=== PATIENT | female | born 1995 | race Caucasian/White ===

== ENCOUNTER 2016-07-13 19:38 | Emergency (ER) | payer OTHER ==
--- NOTE | 2016-07-13 20:08 | ED ORDER SUMMARY ---
..... 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 (21:02 07/13/2016)] [Electronically signed by Pilar Selby A.R.N.P. (21:52 07/13/2016)] [Electronically locked/signed by Rima Umana R.N. (21:02 07/13/2016)]
--- NOTE | 2016-07-13 20:08 | ED NURSING NOTES ---
Clinical Report - Nurses [facility] [address] [place] [address] 07/13/2016 19:39 Patient: LAYLA GARCIA TRIAGE Triage time 19:46. Acuity: LEVEL 3. Chief Complaint: ALLERGIC REACTION and ITCHING and SWELLING . Nasal, eyes, and throat. Alert. No acute distress. --19:53 Rima Umana R.N. 19:46 07/13/16. BP: 135/57. HR: 100. RR: 22. O2 saturation: 99% on room air. Temp: 98.1 F. Pain level now: 04/14. --19:53 Rima Umana R.N. 19:46 07/13/16. BP: 135/57. HR: 100. RR: 22. O2 saturation: 99% on room air. Temp: 98.1 F. Pain level now: 04/14. --19:53 Rima Umana R.N. Weight: 95.2 kg stated. Height/Length: 68 inches Per Patient. BMI: 31.9. --19:50 Rima Umana R.N. Medications None. --19:49 Rima Umana R.N. Allergies No Known Drug Allergy. --19:49 Rima Umana R.N. History Arrived by private vehicle. Historian: patient. Accompanied by family. Primary physician ([facility]). This is a new problem and onset was abrupt. Symptoms are constant and still present. She has had itching and swelling. Location identified as the face, periorbital area and lips. 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 PAST MEDICAL HX: Immunizations: up-to-date. Last normal menstrual period now. SOCIAL HX: Never smoker. No alcohol use or drug use. ABUSE ASSESSMENT: No report of abuse. FALL RISK ASSESSMENT: Fall risk assessment completed. No fall risk identified. NUTRITIONAL RISK ASSESSMENT: The nutritional risk assessment revealed no deficiencies. FUNCTIONAL ASSESSMENT: Functional assessment: no impairments noted. LEARNING NEEDS ASSESSMENT: The learning needs assessment revealed no barriers. SKIN INTEGRITY ASSESSMENT: Skin integrity risk assessment completed. No skin integrity risk identified. --19:53 Rima Umana R.N. PROBLEMS: no known problems. ADDITIONAL SURGERIES: no known surgeries. Interventions ID band on patient. To room. --19:53 Rima Umana R.N. PHYSICAL ASSESSMENT Ambulatory to room. Patient gowned. GENERAL / NEURO / PSYCH: Alert. Appears anxious. Oriented X 4. HEENT: Mucous membranes are pink. RESPIRATORY: Respirations not labored. ( Speaks full sentences, but states feels voice getting thick.). CVS: Normal sinus rhythm noted. Cardiac rhythm: normal sinus rhythm. Capillary refill less than 2 seconds. SKIN: Skin is intact, warm and dry. Swelling on the periorbital area and lips. --20:11 Rima Umana R.N. NURSING PROGRESS NOTES 19:50 07/13/2016 Site #1 started via IV in the right antecubital space with an 20g angiocath, with aseptic technique and good blood return; one attempt. Blood drawn: rainbow set. Labeled in the presence of the patient and sent to the lab. Saline lock flushed with 10 mL saline. --19:55 An Mcgraw 20:04 07/13/2016 Epinephrine (EPINEPHrine HCl) Subcutaneous 0.3 mg given. Given in the right upper arm. Allergies verified and confirmed 5 rights. (Dose/route verified with LUCY Abarca). --20:04 An Mcgraw blood and plasma laboratory assistant, pulse oximeter and NIBP monitor placed on patient; electrical journeyman- Lead II; monitor alarms on. Patient gowned. Head of bed elevated. Reassurance given. Two patient identifiers checked. Call light placed in reach. Side rails up x 2. Bed placed in lowest position. Brakes of bed on. Patient ready for evaluation. --20:12 Rima Umana R.N. 20:00 07/13/2016 Pepcid IVP 40 mg given over 4 minute(s) via site #1. Allergies verified and confirmed 5 rights. IV patency established. IV site checked: no pain, redness, or swelling. IV flushed thoroughly pre- and post-medication administration. IVP given by RN. --20:14 Rima Umana R.N. 20:03 07/13/2016 Benadryl (DiphenhydrAMINE HCl) IVP 25 mg given over 1 minute(s) via site #1. Allergies verified, confirmed 5 rights and sedative warning given to the patient. IV patency established. IV site checked: no pain, redness, or swelling. IV flushed thoroughly pre- and post-medication administration. IVP given by RN. --20:13 Rima Umana R.N. 20:04 07/13/2016 Decadron IVP 8 mg given over 1 minute(s) via site #1. Allergies verified and confirmed 5 rights. IV patency established. IV site checked: no pain, redness, or swelling. IV flushed thoroughly pre- and post-medication administration. IVP given by RN. --20:14 Rima Umana R.N. 20:45 07/13/2016 Site #1 removed upon discharge. Catheter intact. Bandaid applied. --20:57 Rima Umana R.N. DISPOSITION / DISCHARGE 20:45. Condition at departure: improved. No learning barriers present. Discharge instructions provided and reviewed. Reviewed medication(s) side effects, precautions, dosing and course information. Prescription(s) given to the patient. Patient verbalized understanding. Written instructions provided in Icelandic. The patient was discharged home and accompanied by spouse. She left the Emergency Department ambulatory and via private vehicle. Spouse driving. Medication list reviewed and validated. --21:00 Rima Umana R.N. 20:58 07/13/16. BP: 136/77. HR: 77. RR: 18. O2 saturation: 100%. Temp: deferred. Pain level now: 02/14. 19:46 07/13/16. BP: 135/57. HR: 100. RR: 22. O2 saturation: 99% on room air. Temp: 98.1 F. Pain level now: 04/14. --21:00 Rima Umana R.N. Locked/Released at 07/13/2016 21:02 by Rima Umana R.N.
--- NOTE | 2016-07-13 20:08 | ED ORDER SUMMARY ---
..... 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 (21:02 07/13/2016)] [Electronically signed by Pilar Selby A.R.N.P. (21:52 07/13/2016)] [Electronically locked/signed by Rima Umana R.N. (21:02 07/13/2016)]
--- NOTE | 2016-07-13 20:08 | ED CLINICAL REPORT ---
Clinical Report - Physicians/Mid Levels [facility] [address] [place] [address] 07/13/2016 19:39 Patient: LAYLA GARCIA Time Seen: 1941; upon arrival, initial patient contact, initial documentation, patient care assumed. Arrived- By private vehicle. Historian- patient. HISTORY OF PRESENT ILLNESS Chief Complaint: ALLERGIC REACTION and ITCHING. FACIAL SWELLING and THROAT SWELLING. The patient has had itching and swelling involving the face, lips, tongue and throat but not had trouble swallowing. No difficulty breathing, dizziness or fainting episodes. This started just prior to arrival and is still present. It was abrupt in onset and has been constant. No cause has been identified. The patient was not assessed by EMS prior to arrival. The patient self administered medication prior to arrival including Benadryl (50mg). Similar symptoms previously: None. Recent medical care: Not recently seen/assessed. REVIEW OF SYSTEMS No sore throat, cough or fever. All systems otherwise negative, except as recorded above. PAST HISTORY Negative. SOCIAL HISTORY Never smoker. No alcohol use or drug use. No recent travel. Is a local resident. FAMILY HISTORY Negative. ADDITIONAL NOTES The nursing notes have been reviewed with agreement regarding the chief complaint, HPI, ROS, PMH and patient medications and allergies. PHYSICAL EXAM Vital Signs: 07/13/2016 19:46 BP: 135/57. HR: 100. RR: 22. O2 saturation: 99%. Temp: 98.1 F. Pain level now: 3/10. Have been reviewed as normal and appear to be correct. Appearance: Alert. Oriented X3. No acute distress. Head and Neck: External inspection not normal. Head: Mild facial angioedema involving the left periorbital area and cheek. Eyes: Pupils equal, round and reactive to light. ENT: Ears normal. Nose normal. Pharynx normal. Voice normal. Neck: Neck supple. CVS: Normal heart rate and rhythm. Heart sounds normal. Respiratory: No respiratory distress. Breath sounds normal. Skin: Skin warm and dry. Normal skin turgor. Extremities: Normal external inspection. Extremities nontender. Skin: Normal skin color. No rash. No urticaria. Neuro: Oriented X 3. No motor deficit. No sensory deficit. PROGRESS AND PROCEDURES Course of Care: 20:30 07/13/16. Pt feeling better, less swelling, nad, resp even and unlabored. Patient counseled in person regarding the patient's stable condition and diagnosis. 2030. Differential Diagnosis: Other possible considerations: anaphylaxis, angioedema, allergic reactions, urticaria, hives. Above considerations are based on history, physical exam and reassessment. Differential diagnosis was discussed with patient. Disposition: Discharged home in good and improved condition (20:31). Condition: good and stable. CLINICAL IMPRESSION Generalized allergic reaction with angioedema of unknown cause. INSTRUCTIONS Warnings: GENERAL WARNINGS: Return or contact your physician immediately if your condition worsens or changes unexpectedly, if not improving as expected, or if other problems arise. Specifically return if problem worsens. Prescription Medications: Tamia 180 mg tablets: take 1 orally daily for 10 days. Dispense ten (10). No refills. EpiPen: inject outside of thigh for allergic reaction. Dispense one (1) unit. No refills. Substitution is permissible. Prednisone 20 mg: take 3 orally every day for 10 days. Dispense sufficient quantity. No refills. Pepcid 40 mg RPD: take 1 orally at bedtime for 10 days. Dispense ten (10). No refills. Follow-up: Follow up with your doctor in about two days even if well. Call for an appointment. Summary of care provided to patient. Understanding of the discharge instructions verbalized by patient. (Electronically signed by Pilar Selby A.R.N.P. 07/13/2016 21:52)
--- NOTE | 2016-07-13 20:08 | ED NURSING NOTES ---
Clinical Report - Nurses [facility] [address] [place] [address] 07/13/2016 19:39 Patient: LAYLA GARCIA TRIAGE Triage time 19:46. Acuity: LEVEL 3. Chief Complaint: ALLERGIC REACTION and ITCHING and SWELLING . Nasal, eyes, and throat. Alert. No acute distress. --19:53 Rima Umana R.N. 19:46 07/13/16. BP: 135/57. HR: 100. RR: 22. O2 saturation: 99% on room air. Temp: 98.1 F. Pain level now: 04/14. --19:53 Rima Umana R.N. 19:46 07/13/16. BP: 135/57. HR: 100. RR: 22. O2 saturation: 99% on room air. Temp: 98.1 F. Pain level now: 04/14. --19:53 Rima Umana R.N. Weight: 95.2 kg stated. Height/Length: 68 inches Per Patient. BMI: 31.9. --19:50 Rima Umana R.N. Medications None. --19:49 Rima Umana R.N. Allergies No Known Drug Allergy. --19:49 Rima Umana R.N. History Arrived by private vehicle. Historian: patient. Accompanied by family. Primary physician ([facility]). This is a new problem and onset was abrupt. Symptoms are constant and still present. She has had itching and swelling. Location identified as the face, periorbital area and lips. 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 PAST MEDICAL HX: Immunizations: up-to-date. Last normal menstrual period now. SOCIAL HX: Never smoker. No alcohol use or drug use. ABUSE ASSESSMENT: No report of abuse. FALL RISK ASSESSMENT: Fall risk assessment completed. No fall risk identified. NUTRITIONAL RISK ASSESSMENT: The nutritional risk assessment revealed no deficiencies. FUNCTIONAL ASSESSMENT: Functional assessment: no impairments noted. LEARNING NEEDS ASSESSMENT: The learning needs assessment revealed no barriers. SKIN INTEGRITY ASSESSMENT: Skin integrity risk assessment completed. No skin integrity risk identified. --19:53 Rima Umana R.N. PROBLEMS: no known problems. ADDITIONAL SURGERIES: no known surgeries. Interventions ID band on patient. To room. --19:53 Rima Umana R.N. PHYSICAL ASSESSMENT Ambulatory to room. Patient gowned. GENERAL / NEURO / PSYCH: Alert. Appears anxious. Oriented X 4. HEENT: Mucous membranes are pink. RESPIRATORY: Respirations not labored. ( Speaks full sentences, but states feels voice getting thick.). CVS: Normal sinus rhythm noted. Cardiac rhythm: normal sinus rhythm. Capillary refill less than 2 seconds. SKIN: Skin is intact, warm and dry. Swelling on the periorbital area and lips. --20:11 Rima Umana R.N. NURSING PROGRESS NOTES 19:50 07/13/2016 Site #1 started via IV in the right antecubital space with an 20g angiocath, with aseptic technique and good blood return; one attempt. Blood drawn: rainbow set. Labeled in the presence of the patient and sent to the lab. Saline lock flushed with 10 mL saline. --19:55 An Mcgraw 20:04 07/13/2016 Epinephrine (EPINEPHrine HCl) Subcutaneous 0.3 mg given. Given in the right upper arm. Allergies verified and confirmed 5 rights. (Dose/route verified with LUCY Abarca). --20:04 An Mcgraw library monitor, pulse oximeter and NIBP monitor placed on patient; shelter monitor- Lead II; monitor alarms on. Patient gowned. Head of bed elevated. Reassurance given. Two patient identifiers checked. Call light placed in reach. Side rails up x 2. Bed placed in lowest position. Brakes of bed on. Patient ready for evaluation. --20:12 Rima Umana R.N. 20:00 07/13/2016 Pepcid IVP 40 mg given over 4 minute(s) via site #1. Allergies verified and confirmed 5 rights. IV patency established. IV site checked: no pain, redness, or swelling. IV flushed thoroughly pre- and post-medication administration. IVP given by RN. --20:14 Rima Umana R.N. 20:03 07/13/2016 Benadryl (DiphenhydrAMINE HCl) IVP 25 mg given over 1 minute(s) via site #1. Allergies verified, confirmed 5 rights and sedative warning given to the patient. IV patency established. IV site checked: no pain, redness, or swelling. IV flushed thoroughly pre- and post-medication administration. IVP given by RN. --20:13 Rima Umana R.N. 20:04 07/13/2016 Decadron IVP 8 mg given over 1 minute(s) via site #1. Allergies verified and confirmed 5 rights. IV patency established. IV site checked: no pain, redness, or swelling. IV flushed thoroughly pre- and post-medication administration. IVP given by RN. --20:14 Rima Umana R.N. 20:45 07/13/2016 Site #1 removed upon discharge. Catheter intact. Bandaid applied. --20:57 Rima Umana R.N. DISPOSITION / DISCHARGE 20:45. Condition at departure: improved. No learning barriers present. Discharge instructions provided and reviewed. Reviewed medication(s) side effects, precautions, dosing and course information. Prescription(s) given to the patient. Patient verbalized understanding. Written instructions provided in Kazakh. The patient was discharged home and accompanied by spouse. She left the Emergency Department ambulatory and via private vehicle. Spouse driving. Medication list reviewed and validated. --21:00 Rima Umana R.N. 20:58 07/13/16. BP: 136/77. HR: 77. RR: 18. O2 saturation: 100%. Temp: deferred. Pain level now: 02/14. 19:46 07/13/16. BP: 135/57. HR: 100. RR: 22. O2 saturation: 99% on room air. Temp: 98.1 F. Pain level now: 04/14. --21:00 Rima Umana R.N. Locked/Released at 07/13/2016 21:02 by Rima Umana R.N.
--- NOTE | 2016-07-13 21:52 | ED DISCHARGE INSTRUCTIONS ---
Patient: LAYLA GARCIA General Instructions [facility] VisitID: [id number] [place] [address] 21y, F Registration Date/Time: 07/13/2016 Generalized allergic reaction with angioedema of unknown cause. INSTRUCTIONS Warnings: GENERAL WARNINGS: Return or contact your physician immediately if your condition worsens or changes unexpectedly, if not improving as expected, or if other problems arise. Specifically return if problem worsens. Prescription Medications: Tamia 180 mg tablets: take 1 orally daily for 10 days. Dispense ten (10). No refills. EpiPen: inject outside of thigh for allergic reaction. Dispense one (1) unit. No refills. Substitution is permissible. Prednisone 20 mg: take 3 orally every day for 10 days. Dispense sufficient quantity. No refills. Pepcid 40 mg RPD: take 1 orally at bedtime for 10 days. Dispense ten (10). No refills. Follow-up: Follow up with your doctor in about two days even if well. Call for an appointment. Summary of care provided to patient. Understanding of the discharge instructions verbalized by patient. ADDITIONAL INFORMATION Allergic Reaction,Generalized [Other] You are having an allergic reaction. This may cause an itchy rash, dizziness, fainting, trouble breathing or swallowing, and swelling of the face or other parts of the body. This can be caused by exposure to something in your surroundings that you have become sensitive to. This could be due to medicine or food. This could also be due to something you put on your skin or in your hair or something in the air. Often it is not possible to find out exactly what has caused your reaction. The goal of today's treatment is to relieve symptoms. The rash will usually fade over several days, but can sometimes last up to two weeks. Home Care: 1) If you know what you are allergic to, avoid it because future reactions could be worse than this one. 2) Avoid tight clothing and anything that heats up your skin (hot showers/baths, direct sunlight) since heat will make itching worse. 3) An ice pack will relieve local areas of intense itching and redness. Lanacaine cream or Solarcaine spray (or other product containing "benzocaine", available without a prescription) will reduce the itching. 4) Oral Benadryl (diphenhydramine) is an antihistamine available at drug and grocery stores. Unless a prescription antihistamine was given, Benadryl may be used to reduce itching if large areas of the skin are involved. Use lower doses during the daytime and higher doses at bedtime since the drug may make you sleepy. [NOTE: Do not use Benadryl if you have glaucoma or if you are a man with trouble urinating due to an enlarged prostate.] Claritin (loratidine) is an antihistamine that causes less drowsiness and is a good alternative for daytime use. Follow Up Follow Up with your doctor or this facility in two days if your symptoms do not continue to improve. If you had a severe reaction today, or if you have had several mild-moderate allergic reactions in the past, ask your doctor about allergy testing to find out what you are allergic to. If your reaction included dizziness, fainting or trouble breathing or swallowing, ask your doctor about carrying an Allergy Kit (injectable epinephrine) for home use. Get Prompt Medical Attention if any of the following occur: -- Trouble breathing or swallowing -- New or worse swelling in the face, eyelids, lips, mouth, tongue or throat -- Dizziness, weakness or fainting Angioedema Angioedema (zrsxzxxdtgbnvzi-i-grdiq) is a sudden appearance of swollen patches (edema) on the skin or mucous membranes. The swelling is painless and does not itch. It most often involves the face, lips, mouth, tongue, back of throat or vocal cords. It may also occur in other places such as the arms or legs. A rash may also appear during the first 4 days of this illness. The most common cause for this condition is a side-effect to a class of medicine calledACE inhibitor.This type of drug is used to treat high blood pressure. It includes captopril (Capoten), enalapril (Vasotec) and lisinopril (Prinivil, Zestril). Tell your doctor if you are taking any of these medicines. Other causes of angioedema include allergic reaction to something eaten, touched or inhaled. Angioedema may also be hereditary. In some cases, no cause can be found. Angioedema can lead to the swelling of the air passage in the mouth or throat. Severe swelling can block your breathing and cause . Your doctor believes that you are not at risk for this; however, be alert for early signs of increased swelling in the mouth or throat, or difficulty with swallowing or breathing. Angioedema may recur. It is therefore important to watch for the earliest signs of this condition (below). Return to the hospital promptly if swelling involves the face, mouth or throat areas. Home Care: Rest quietly today. No heavy exertion or excess physical activity. If you were told that your angioedema was from a medicine that you are taking, you must stop taking this medicine. Contact your doctor for a different one. In the future, advise medical staff that you are allergic to this medicine. If medicine was prescribed to treat angioedema (for example, steroids or antihistamines), take it as directed. Oral Benadryl (diphenhydramine) is an antihistamine available at drug and grocery stores. Unless another antihistamine was prescribed, Benadryl may be used to reduce swelling or itching. Use lower doses during the daytime and higher doses at bedtime since the drug may make you sleepy. [NOTE: Do not use Benadryl if you have glaucoma or if you are a man with trouble urinating due to an enlarged prostate.] Claritin (loratidine) is an antihistamine that causes less drowsiness and is a good alternative for daytime use. Follow Up with your doctor or as advised by our staff. Get Prompt Medical Attention if any of the following occur: Increase in swelling of lip, mouth, tongue or throat Trouble swallowing Trouble breathing Severe abdominal pains Anaphylaxis Anaphylaxis is the term for a severe allergic reaction. It may begin within minutes, up to a couple hours after exposure to the substance you are allergic to (allergen). Symptoms include nausea, vomiting, diarrhea or stomach cramps, itchy rash (hives), swelling of the eyes, lips, face or tongue, wheezing, difficulty breathing or swallowing, throat tightness, chest pain, dizziness or fainting. This kind of reaction can be life-threatening. Fortunately, your case has responded to treatment. Any remaining symptoms should resolve within 6-24 hours. If you are exposed to the same substance again, you may have the same or more severe reaction. Treatment for anaphylaxis is epinephrine (adrenalin). This is available by prescription as Epi-Pen for self-injection. If the cause of your reaction is known, you should avoid exposure in the future. If the cause is not known, follow up with your doctor for special testing to determine what you are allergic to. Home Care: Rest at home for the next 24 hours. Avoid tobacco and alcohol consumption. These may worsen your symptoms. If you know what caused your reaction today, avoid that in the future since the next reaction may be worse. Let your family members, friends and personal physician know about your allergic reaction. If your allergy was to food, learn how to read food labels so you can check for the offending substance. If a product does not have a label, it is best to avoid it. Consider carrying an identification card or getting a Medic-Alert bracelet to inform medical personnel of your condition in the event you are not able to do so yourself. If an Epi-Pen was prescribed, carry it at all times. It can be life-saving. Learn how to use the device. If you begin to feel the symptoms of another reaction in the future, use the Epi-Pen to inject yourself, and then call 911. Dont wait until symptoms become severe. Oral Benadryl (diphenhydramine) is an antihistamine available at drug and grocery stores. Unless a prescription antihistamine was given, Benadryl may be used to reduce itching if large areas of the skin are involved. Use lower doses during the daytime and higher doses at bedtime since the drug may make you sleepy. [NOTE: Do not use Benadryl if you have glaucoma or if you are a man with trouble urinating due to an enlarged prostate.] Claritin (loratidine) is an antihistamine that causes less drowsiness and is a good alternative for daytime use. If you were prescribed any medicines to prevent symptoms from returning, be sure to take them exactly as directed. Follow Up with your doctor or as advised if you are not improving over the next 1-2 days. If you do not know what caused this reaction, skin and blood tests, or an elimination diet may be helpful. You may locate an [facility] in your area by contacting: [employer] www.aaaai.org [phone] [employer] www.acaai.org Get Prompt Medical Attention if any of the following occur: Worsening of your symptoms Trouble breathing or swallowing Swelling in the mouth or face Chest pain Dizziness, weakness or fainting Fexofenadine Hydrochloride Oral tablet What is this medicine? FEXOFENADINE (fex oh VIVIEN a federico) is an antihistamine. This medicine is used to treat or prevent symptoms of allergies. It is also used to help reduce itchy skin rash and hives. How should I use this medicine? Take this medicine by mouth with a full glass of water. Follow the directions on the prescription label. You may take this medicine with food or on an empty stomach. Take your medicine at regular intervals. Do not take it more often than directed. You may need to take this medicine for several days before your symptoms improve. Talk to your ham stripper regarding the use of this medicine in children. While this drug may be prescribed for children as young as 6 years old for selected conditions, precautions do apply. What side effects may I notice from receiving this medicine? Side effects that you should report to your doctor or health career resource technician as soon as possible: allergic reactions like skin rash, itching or hives, swelling of the face, lips, or tongue breathing problems chest pain fast heartbeat infection or fever Side effects that usually do not require medical attention (report to your doctor or health career resource technician if they continue or are bothersome): cough drowsiness dry or irritated nose, mouth, or throat headache menstrual changes pain stomach upset, nausea What may interact with this medicine? antacids erythromycin grapefruit, apple, or orange juice ketoconazole magnesium-containing products What if I miss a dose? If you miss a dose, take it as soon as you can. If it is almost time for your next dose, take only that dose. Do not take double or extra doses. Where should I keep my medicine? Keep out of the reach of children. Store at room temperature between 20 and 25 degrees C (68 and 77degrees F). Protect from moisture. Throw away any unused medicine after the expiration date. What should I tell my health care provider before I take this medicine? They need to know if you have any of these conditions: kidney disease an unusual or allergic reaction to fexofenadine, terfenadine, other medicines, foods, dyes, or preservatives or trying to get breast-feeding What should I watch for while using this medicine? Visit your doctor or health career resource technician for regular checks on your health. Tell your doctor or healthcare professional if your symptoms do not start to get better or if they get worse. Prednisone Oral tablet What is this medicine? PREDNISONE (PRED ni sone) is a corticosteroid. It is commonly used to treat inflammation of the skin, joints, lungs, and other organs. Common conditions treated include asthma, allergies, and arthritis. It is also used for other conditions, such as blood disorders and diseases of the adrenal glands. How should I use this medicine? Take this medicine by mouth with a glass of water. Follow the directions on the prescription label. Take this medicine with food. If you are taking this medicine once a day, take it in the morning. Do not take more medicine than you are told to take. Do not suddenly stop taking your medicine because you may develop a severe reaction. Your doctor will tell you how much medicine to take. If your doctor wants you to stop the medicine, the dose may be slowly lowered over time to avoid any side effects. Talk to your ham stripper regarding the use of this medicine in children. Special care may be needed. What side effects may I notice from receiving this medicine? Side effects that you should report to your doctor or health career resource technician as soon as possible: allergic reactions like skin rash, itching or hives, swelling of the face, lips, or tongue changes in emotions or moods changes in vision depressed mood eye pain fever or chills, cough, sore throat, pain or difficulty passing urine increased thirst swelling of ankles, feet Side effects that usually do not require medical attention (report to your doctor or health career resource technician if they continue or are bothersome): confusion, excitement, restlessness headache nausea, vomiting skin problems, acne, thin and shiny skin trouble sleeping weight gain What may interact with this medicine? Do not take this medicine with any of the following medications: metyrapone mifepristone This medicine may also interact with the following medications: aminoglutethimide amphotericin B aspirin and aspirin-like medicines barbiturates certain medicines for diabetes, like glipizide or glyburide cholestyramine cholinesterase inhibitors cyclosporine digoxin diuretics ephedrine female hormones, like estrogens and control pills isoniazid ketoconazole NSAIDS, medicines for pain and inflammation, like ibuprofen or naproxen phenytoin rifampin toxoids vaccines warfarin What if I miss a dose? If you miss a dose, take it as soon as you can. If it is almost time for your next dose, talk to your doctor or health career resource technician. You may need to miss a dose or take an extra dose. Do not take double or extra doses without advice. Where should I keep my medicine? Keep out of the reach of children. Store at room temperature between 15 and 30 degrees C (59 and 86 degrees F). Protect from light. Keep container tightly closed. Throw away any unused medicine after the expiration date. What should I tell my health care provider before I take this medicine? They need to know if you have any of these conditions: Brittani's syndrome diabetes glaucoma heart disease high blood pressure infection (especially a virus infection such as chickenpox, cold sores, or herpes) kidney disease liver disease mental illness myasthenia gravis osteoporosis seizures stomach or intestine problems thyroid disease an unusual or allergic reaction to lactose, prednisone, other medicines, foods, dyes, or preservatives or trying to get breast-feeding What should I watch for while using this medicine? Visit your doctor or health career resource technician for regular checks on your progress. If you are taking this medicine over a prolonged period, carry an identification card with your name and address, the type and dose of your medicine, and your doctor's name and address. This medicine may increase your risk of getting an infection. Tell your doctor or health career resource technician if you are around anyone with measles or chickenpox, or if you develop sores or blisters that do not heal properly. If you are going to have surgery, tell your doctor or health career resource technician that you have taken this medicine within the last twelve months. Ask your doctor or health career resource technician about your diet. You may need to lower the amount of salt you eat. This medicine may affect blood sugar levels. If you have diabetes, check with your doctor or health career resource technician before you change your diet or the dose of your diabetic medicine. Famotidine Oral tablet What is this medicine? FAMOTIDINE (fa JAMESON caballero) is a type of antihistamine that blocks the release of stomach acid. It is used to treat stomach or intestinal ulcers. It can also relieve heartburn from acid reflux. How should I use this medicine? Take this medicine by mouth with a glass of water. Follow the directions on the prescription label. If you only take this medicine once a day, take it at bedtime. Take your doses at regular intervals. Do not take your medicine more often than directed. Talk to your ham stripper regarding the use of this medicine in children. Special care may be needed. What side effects may I notice from receiving this medicine? Side effects that you should report to your doctor or health career resource technician as soon as possible: agitation, nervousness confusion hallucinations skin rash, itching Side effects that usually do not require medical attention (report to your doctor or health career resource technician if they continue or are bothersome): constipation diarrhea dizziness headache What may interact with this medicine? delavirdine itraconazole ketoconazole What if I miss a dose? If you miss a dose, take it as soon as you can. If it is almost time for your next dose, take only that dose. Do not take double or extra doses. Where should I keep my medicine? Keep out of the reach of children. Store at room temperature between 15 and 30 degrees C (59 and 86 degrees F). Do not freeze. Throw away any unused medicine after the expiration date. What should I tell my health care provider before I take this medicine? They need to know if you have any of these conditions: kidney or liver disease trouble swallowing an unusual or allergic reaction to famotidine, other medicines, foods, dyes, or preservatives or trying to get breast-feeding What should I watch for while using this medicine? Tell your doctor or health career resource technician if your condition does not start to get better or if it gets worse. Finish the full course of tablets prescribed, even if you feel better. Do not take with aspirin, ibuprofen or other antiinflammatory medicines. These can make your condition worse. Do not smoke cigarettes or drink alcohol. These cause irritation in your stomach and can increase the time it will take for ulcers to heal. If you get black, tarry stools or vomit up what looks like coffee grounds, call your doctor or health career resource technician at once. You may have a bleeding ulcer. You have been given the following additional information: Allergic Reaction, Other (General) Angioedema Anaphylaxis, General Fexofenadine Hydrochloride Oral tablet Prednisone Oral tablet Famotidine Oral tablet (Electronically signed by Pilar Selby A.R.N.P. 07/13/2016 21:52)
--- NOTE | 2016-07-13 21:52 | ED MED RECONCILIATION SUMMARY ---
Patient: LAYLA GARCIA Medication Reconciliation Report [facility] VisitID: [id number] [place] [address] 21y, F Registration Date/Time: 07/13/2016 Weight: 95.2 kg Height/Length: 68 in. BMI: 31.9 ALLERGIES: No Known Drug Allergy The patient's Home Medications are listed below: NONE. The source(s) of the original Home Medication information: Not obtained. The following Medications were given to the patient in the Emergency Department: Epinephrine [Subcutanreous] Subcutaneous 0.3 mg, administered: 07/13/2016 8:04:00 PM Benadryl [IVP] IVP 25 mg, administered: 07/13/2016 8:03:00 PM Decadron [IVP] IVP 8 mg, administered: 07/13/2016 8:04:00 PM Pepcid [IVP] IVP 40 mg, administered: 07/13/2016 8:00:00 PM The following Medications were prescribed to the patient: Tamia 180 mg tablets: take 1 orally daily for 10 days. Dispense ten (10). No refills. -- Pilar Selby A.R.N.P. EpiPen: inject outside of thigh for allergic reaction. Dispense one (1) unit. No refills. Substitution is permissible. -- Pilar Selby A.R.N.P. Prednisone 20 mg: take 3 orally every day for 10 days. Dispense sufficient quantity. No refills. -- Pialr Selby A.R.N.P. Pepcid 40 mg RPD: take 1 orally at bedtime for 10 days. Dispense ten (10). No refills. -- Pilar Selby A.R.N.P.
--- NOTE | 2016-07-13 21:52 | ED MED RECONCILIATION SUMMARY ---
Patient: LAYLA GARCIA Medication Reconciliation Report [facility] VisitID: [id number] [place] [address] 21y, F Registration Date/Time: 07/13/2016 Weight: 95.2 kg Height/Length: 68 in. BMI: 31.9 ALLERGIES: No Known Drug Allergy The patient's Home Medications are listed below: NONE. The source(s) of the original Home Medication information: Not obtained. The following Medications were given to the patient in the Emergency Department: Epinephrine [Subcutanreous] Subcutaneous 0.3 mg, administered: 07/13/2016 8:04:00 PM Benadryl [IVP] IVP 25 mg, administered: 07/13/2016 8:03:00 PM Decadron [IVP] IVP 8 mg, administered: 07/13/2016 8:04:00 PM Pepcid [IVP] IVP 40 mg, administered: 07/13/2016 8:00:00 PM The following Medications were prescribed to the patient: Tamia 180 mg tablets: take 1 orally daily for 10 days. Dispense ten (10). No refills. -- Pilar Selby A.R.N.P. EpiPen: inject outside of thigh for allergic reaction. Dispense one (1) unit. No refills. Substitution is permissible. -- Pilar Selby A.R.N.P. Prednisone 20 mg: take 3 orally every day for 10 days. Dispense sufficient quantity. No refills. -- Pilar Selby A.R.N.P. Pepcid 40 mg RPD: take 1 orally at bedtime for 10 days. Dispense ten (10). No refills. -- Pilar Selby A.R.N.P.
--- NOTE | 2016-07-13 21:52 | ED MAR SUMMARY ---
..... Medication Administration Record [facility] [address] [place] [address] Patient: LAYLA GARCIA Visit ID: [id number] 21y, F Weight: 95.2 kg Height/Length: 68 in BMI: 31.9 ALLERGIES: No Known Drug Allergy Given 20:07/13/2016 Rima Umana R.N. Medication Administered: PEPCID [IVP], Dose: 40 mg IVP over 4 minute(s), Site: #1 right AC. Medication Ordered: Pepcid IV 40 mg/50mL (NOW). Given 20:07/13/2016 Rima Umana R.N. Medication Administered: BENADRYL [IVP] (DIPHENHYDRAMINE HCL), Dose: 25 mg IVP over 1 minute(s), Site: #1 right AC. Medication Ordered: Benadryl IV 25 mg (NOW). Given 20:07/13/2016 Rima Umana R.N. Medication Administered: DECADRON [IVP], Dose: 8 mg IVP over 1 minute(s), Site: #1 right AC. Medication Ordered: Decadron IV 8 mg (NOW). Given 20:07/13/2016 An Mcgraw, Medication Administered: EPINEPHRINE [SUBCUTANREOUS] (EPINEPHRINE HCL), Dose: 0.3 mg Subcutaneous. Medication Ordered: Epinephrine Subcut 0.3 mg (HIGH ALERT MEDICATION, NOW).
--- NOTE | 2016-07-13 21:52 | ED DISCHARGE INSTRUCTIONS ---
Patient: LAYLA GARCIA General Instructions [facility] VisitID: [id number] [place] [address] 21y, F Registration Date/Time: 07/13/2016 Generalized allergic reaction with angioedema of unknown cause. INSTRUCTIONS Warnings: GENERAL WARNINGS: Return or contact your physician immediately if your condition worsens or changes unexpectedly, if not improving as expected, or if other problems arise. Specifically return if problem worsens. Prescription Medications: Tamia 180 mg tablets: take 1 orally daily for 10 days. Dispense ten (10). No refills. EpiPen: inject outside of thigh for allergic reaction. Dispense one (1) unit. No refills. Substitution is permissible. Prednisone 20 mg: take 3 orally every day for 10 days. Dispense sufficient quantity. No refills. Pepcid 40 mg RPD: take 1 orally at bedtime for 10 days. Dispense ten (10). No refills. Follow-up: Follow up with your doctor in about two days even if well. Call for an appointment. Summary of care provided to patient. Understanding of the discharge instructions verbalized by patient. ADDITIONAL INFORMATION Allergic Reaction,Generalized [Other] You are having an allergic reaction. This may cause an itchy rash, dizziness, fainting, trouble breathing or swallowing, and swelling of the face or other parts of the body. This can be caused by exposure to something in your surroundings that you have become sensitive to. This could be due to medicine or food. This could also be due to something you put on your skin or in your hair or something in the air. Often it is not possible to find out exactly what has caused your reaction. The goal of today's treatment is to relieve symptoms. The rash will usually fade over several days, but can sometimes last up to two weeks. Home Care: 1) If you know what you are allergic to, avoid it because future reactions could be worse than this one. 2) Avoid tight clothing and anything that heats up your skin (hot showers/baths, direct sunlight) since heat will make itching worse. 3) An ice pack will relieve local areas of intense itching and redness. Lanacaine cream or Solarcaine spray (or other product containing "benzocaine", available without a prescription) will reduce the itching. 4) Oral Benadryl (diphenhydramine) is an antihistamine available at drug and grocery stores. Unless a prescription antihistamine was given, Benadryl may be used to reduce itching if large areas of the skin are involved. Use lower doses during the daytime and higher doses at bedtime since the drug may make you sleepy. [NOTE: Do not use Benadryl if you have glaucoma or if you are a man with trouble urinating due to an enlarged prostate.] Claritin (loratidine) is an antihistamine that causes less drowsiness and is a good alternative for daytime use. Follow Up Follow Up with your doctor or this facility in two days if your symptoms do not continue to improve. If you had a severe reaction today, or if you have had several mild-moderate allergic reactions in the past, ask your doctor about allergy testing to find out what you are allergic to. If your reaction included dizziness, fainting or trouble breathing or swallowing, ask your doctor about carrying an Allergy Kit (injectable epinephrine) for home use. Get Prompt Medical Attention if any of the following occur: -- Trouble breathing or swallowing -- New or worse swelling in the face, eyelids, lips, mouth, tongue or throat -- Dizziness, weakness or fainting Angioedema Angioedema ([id number]) is a sudden appearance of swollen patches (edema) on the skin or mucous membranes. The swelling is painless and does not itch. It most often involves the face, lips, mouth, tongue, back of throat or vocal cords. It may also occur in other places such as the arms or legs. A rash may also appear during the first 4 days of this illness. The most common cause for this condition is a side-effect to a class of medicine calledACE inhibitor.This type of drug is used to treat high blood pressure. It includes captopril (Capoten), enalapril (Vasotec) and lisinopril (Prinivil, Zestril). Tell your doctor if you are taking any of these medicines. Other causes of angioedema include allergic reaction to something eaten, touched or inhaled. Angioedema may also be hereditary. In some cases, no cause can be found. Angioedema can lead to the swelling of the air passage in the mouth or throat. Severe swelling can block your breathing and cause . Your doctor believes that you are not at risk for this; however, be alert for early signs of increased swelling in the mouth or throat, or difficulty with swallowing or breathing. Angioedema may recur. It is therefore important to watch for the earliest signs of this condition (below). Return to the hospital promptly if swelling involves the face, mouth or throat areas. Home Care: Rest quietly today. No heavy exertion or excess physical activity. If you were told that your angioedema was from a medicine that you are taking, you must stop taking this medicine. Contact your doctor for a different one. In the future, advise medical staff that you are allergic to this medicine. If medicine was prescribed to treat angioedema (for example, steroids or antihistamines), take it as directed. Oral Benadryl (diphenhydramine) is an antihistamine available at drug and grocery stores. Unless another antihistamine was prescribed, Benadryl may be used to reduce swelling or itching. Use lower doses during the daytime and higher doses at bedtime since the drug may make you sleepy. [NOTE: Do not use Benadryl if you have glaucoma or if you are a man with trouble urinating due to an enlarged prostate.] Claritin (loratidine) is an antihistamine that causes less drowsiness and is a good alternative for daytime use. Follow Up with your doctor or as advised by our staff. Get Prompt Medical Attention if any of the following occur: Increase in swelling of lip, mouth, tongue or throat Trouble swallowing Trouble breathing Severe abdominal pains Anaphylaxis Anaphylaxis is the term for a severe allergic reaction. It may begin within minutes, up to a couple hours after exposure to the substance you are allergic to (allergen). Symptoms include nausea, vomiting, diarrhea or stomach cramps, itchy rash (hives), swelling of the eyes, lips, face or tongue, wheezing, difficulty breathing or swallowing, throat tightness, chest pain, dizziness or fainting. This kind of reaction can be life-threatening. Fortunately, your case has responded to treatment. Any remaining symptoms should resolve within 6-24 hours. If you are exposed to the same substance again, you may have the same or more severe reaction. Treatment for anaphylaxis is epinephrine (adrenalin). This is available by prescription as Epi-Pen for self-injection. If the cause of your reaction is known, you should avoid exposure in the future. If the cause is not known, follow up with your doctor for special testing to determine what you are allergic to. Home Care: Rest at home for the next 24 hours. Avoid tobacco and alcohol consumption. These may worsen your symptoms. If you know what caused your reaction today, avoid that in the future since the next reaction may be worse. Let your family members, friends and personal physician know about your allergic reaction. If your allergy was to food, learn how to read food labels so you can check for the offending substance. If a product does not have a label, it is best to avoid it. Consider carrying an identification card or getting a Medic-Alert bracelet to inform medical personnel of your condition in the event you are not able to do so yourself. If an Epi-Pen was prescribed, carry it at all times. It can be life-saving. Learn how to use the device. If you begin to feel the symptoms of another reaction in the future, use the Epi-Pen to inject yourself, and then call 911. Dont wait until symptoms become severe. Oral Benadryl (diphenhydramine) is an antihistamine available at drug and grocery stores. Unless a prescription antihistamine was given, Benadryl may be used to reduce itching if large areas of the skin are involved. Use lower doses during the daytime and higher doses at bedtime since the drug may make you sleepy. [NOTE: Do not use Benadryl if you have glaucoma or if you are a man with trouble urinating due to an enlarged prostate.] Claritin (loratidine) is an antihistamine that causes less drowsiness and is a good alternative for daytime use. If you were prescribed any medicines to prevent symptoms from returning, be sure to take them exactly as directed. Follow Up with your doctor or as advised if you are not improving over the next 1-2 days. If you do not know what caused this reaction, skin and blood tests, or an elimination diet may be helpful. You may locate an environmental management specialist in your area by contacting: [employer] www.aaaai.org [phone] [employer] [email or web address].org Get Prompt Medical Attention if any of the following occur: Worsening of your symptoms Trouble breathing or swallowing Swelling in the mouth or face Chest pain Dizziness, weakness or fainting Fexofenadine Hydrochloride Oral tablet What is this medicine? FEXOFENADINE (fex oh VIVIEN a federico) is an antihistamine. This medicine is used to treat or prevent symptoms of allergies. It is also used to help reduce itchy skin rash and hives. How should I use this medicine? Take this medicine by mouth with a full glass of water. Follow the directions on the prescription label. You may take this medicine with food or on an empty stomach. Take your medicine at regular intervals. Do not take it more often than directed. You may need to take this medicine for several days before your symptoms improve. Talk to your front desk receptionist regarding the use of this medicine in children. While this drug may be prescribed for children as young as 6 years old for selected conditions, precautions do apply. What side effects may I notice from receiving this medicine? Side effects that you should report to your doctor or health mall plant caretaker as soon as possible: allergic reactions like skin rash, itching or hives, swelling of the face, lips, or tongue breathing problems chest pain fast heartbeat infection or fever Side effects that usually do not require medical attention (report to your doctor or health mall plant caretaker if they continue or are bothersome): cough drowsiness dry or irritated nose, mouth, or throat headache menstrual changes pain stomach upset, nausea What may interact with this medicine? antacids erythromycin grapefruit, apple, or orange juice ketoconazole magnesium-containing products What if I miss a dose? If you miss a dose, take it as soon as you can. If it is almost time for your next dose, take only that dose. Do not take double or extra doses. Where should I keep my medicine? Keep out of the reach of children. Store at room temperature between 20 and 25 degrees C (68 and 77degrees F). Protect from moisture. Throw away any unused medicine after the expiration date. What should I tell my health care provider before I take this medicine? They need to know if you have any of these conditions: kidney disease an unusual or allergic reaction to fexofenadine, terfenadine, other medicines, foods, dyes, or preservatives or trying to get breast-feeding What should I watch for while using this medicine? Visit your doctor or health mall plant caretaker for regular checks on your health. Tell your doctor or healthcare professional if your symptoms do not start to get better or if they get worse. Prednisone Oral tablet What is this medicine? PREDNISONE (PRED ni sone) is a corticosteroid. It is commonly used to treat inflammation of the skin, joints, lungs, and other organs. Common conditions treated include asthma, allergies, and arthritis. It is also used for other conditions, such as blood disorders and diseases of the adrenal glands. How should I use this medicine? Take this medicine by mouth with a glass of water. Follow the directions on the prescription label. Take this medicine with food. If you are taking this medicine once a day, take it in the morning. Do not take more medicine than you are told to take. Do not suddenly stop taking your medicine because you may develop a severe reaction. Your doctor will tell you how much medicine to take. If your doctor wants you to stop the medicine, the dose may be slowly lowered over time to avoid any side effects. Talk to your front desk receptionist regarding the use of this medicine in children. Special care may be needed. What side effects may I notice from receiving this medicine? Side effects that you should report to your doctor or health mall plant caretaker as soon as possible: allergic reactions like skin rash, itching or hives, swelling of the face, lips, or tongue changes in emotions or moods changes in vision depressed mood eye pain fever or chills, cough, sore throat, pain or difficulty passing urine increased thirst swelling of ankles, feet Side effects that usually do not require medical attention (report to your doctor or health mall plant caretaker if they continue or are bothersome): confusion, excitement, restlessness headache nausea, vomiting skin problems, acne, thin and shiny skin trouble sleeping weight gain What may interact with this medicine? Do not take this medicine with any of the following medications: metyrapone mifepristone This medicine may also interact with the following medications: aminoglutethimide amphotericin B aspirin and aspirin-like medicines barbiturates certain medicines for diabetes, like glipizide or glyburide cholestyramine cholinesterase inhibitors cyclosporine digoxin diuretics ephedrine female hormones, like estrogens and control pills isoniazid ketoconazole NSAIDS, medicines for pain and inflammation, like ibuprofen or naproxen phenytoin rifampin toxoids vaccines warfarin What if I miss a dose? If you miss a dose, take it as soon as you can. If it is almost time for your next dose, talk to your doctor or health mall plant caretaker. You may need to miss a dose or take an extra dose. Do not take double or extra doses without advice. Where should I keep my medicine? Keep out of the reach of children. Store at room temperature between 15 and 30 degrees C (59 and 86 degrees F). Protect from light. Keep container tightly closed. Throw away any unused medicine after the expiration date. What should I tell my health care provider before I take this medicine? They need to know if you have any of these conditions: Brittani's syndrome diabetes glaucoma heart disease high blood pressure infection (especially a virus infection such as chickenpox, cold sores, or herpes) kidney disease liver disease mental illness myasthenia gravis osteoporosis seizures stomach or intestine problems thyroid disease an unusual or allergic reaction to lactose, prednisone, other medicines, foods, dyes, or preservatives or trying to get breast-feeding What should I watch for while using this medicine? Visit your doctor or health mall plant caretaker for regular checks on your progress. If you are taking this medicine over a prolonged period, carry an identification card with your name and address, the type and dose of your medicine, and your doctor's name and address. This medicine may increase your risk of getting an infection. Tell your doctor or health mall plant caretaker if you are around anyone with measles or chickenpox, or if you develop sores or blisters that do not heal properly. If you are going to have surgery, tell your doctor or health mall plant caretaker that you have taken this medicine within the last twelve months. Ask your doctor or health mall plant caretaker about your diet. You may need to lower the amount of salt you eat. This medicine may affect blood sugar levels. If you have diabetes, check with your doctor or health mall plant caretaker before you change your diet or the dose of your diabetic medicine. Famotidine Oral tablet What is this medicine? FAMOTIDINE (fa JAMESON caballero) is a type of antihistamine that blocks the release of stomach acid. It is used to treat stomach or intestinal ulcers. It can also relieve heartburn from acid reflux. How should I use this medicine? Take this medicine by mouth with a glass of water. Follow the directions on the prescription label. If you only take this medicine once a day, take it at bedtime. Take your doses at regular intervals. Do not take your medicine more often than directed. Talk to your front desk receptionist regarding the use of this medicine in children. Special care may be needed. What side effects may I notice from receiving this medicine? Side effects that you should report to your doctor or health mall plant caretaker as soon as possible: agitation, nervousness confusion hallucinations skin rash, itching Side effects that usually do not require medical attention (report to your doctor or health mall plant caretaker if they continue or are bothersome): constipation diarrhea dizziness headache What may interact with this medicine? delavirdine itraconazole ketoconazole What if I miss a dose? If you miss a dose, take it as soon as you can. If it is almost time for your next dose, take only that dose. Do not take double or extra doses. Where should I keep my medicine? Keep out of the reach of children. Store at room temperature between 15 and 30 degrees C (59 and 86 degrees F). Do not freeze. Throw away any unused medicine after the expiration date. What should I tell my health care provider before I take this medicine? They need to know if you have any of these conditions: kidney or liver disease trouble swallowing an unusual or allergic reaction to famotidine, other medicines, foods, dyes, or preservatives or trying to get breast-feeding What should I watch for while using this medicine? Tell your doctor or health mall plant caretaker if your condition does not start to get better or if it gets worse. Finish the full course of tablets prescribed, even if you feel better. Do not take with aspirin, ibuprofen or other antiinflammatory medicines. These can make your condition worse. Do not smoke cigarettes or drink alcohol. These cause irritation in your stomach and can increase the time it will take for ulcers to heal. If you get black, tarry stools or vomit up what looks like coffee grounds, call your doctor or health mall plant caretaker at once. You may have a bleeding ulcer. You have been given the following additional information: Allergic Reaction, Other (General) Angioedema Anaphylaxis, General Fexofenadine Hydrochloride Oral tablet Prednisone Oral tablet Famotidine Oral tablet (Electronically signed by Pilar Selby A.R.N.P. 07/13/2016 21:52)
--- NOTE | 2016-07-13 21:52 | ED MAR SUMMARY ---
..... Medication Administration Record [facility] [address] [place] [address] Patient: LAYLA GARCIA Visit ID: [id number] 21y, F Weight: 95.2 kg Height/Length: 68 in BMI: 31.9 ALLERGIES: No Known Drug Allergy Given 20:07/13/2016 Rima Umana R.N. Medication Administered: PEPCID [IVP], Dose: 40 mg IVP over 4 minute(s), Site: #1 right AC. Medication Ordered: Pepcid IV 40 mg/50mL (NOW). Given 20:07/13/2016 Rima Umana R.N. Medication Administered: BENADRYL [IVP] (DIPHENHYDRAMINE HCL), Dose: 25 mg IVP over 1 minute(s), Site: #1 right AC. Medication Ordered: Benadryl IV 25 mg (NOW). Given 20:07/13/2016 Rima Umana R.N. Medication Administered: DECADRON [IVP], Dose: 8 mg IVP over 1 minute(s), Site: #1 right AC. Medication Ordered: Decadron IV 8 mg (NOW). Given 20:07/13/2016 An Mcgraw, Medication Administered: EPINEPHRINE [SUBCUTANREOUS] (EPINEPHRINE HCL), Dose: 0.3 mg Subcutaneous. Medication Ordered: Epinephrine Subcut 0.3 mg (HIGH ALERT MEDICATION, NOW).
== END 2016-07-13 20:45 | disposition home or self-care (01) ==
LOC: ED SRH 19:38
DX: T78.3XXA Angioneurotic edema, initial encounter (principal); X58.XXXA Exposure to other specified factors, initial encounter; Y93.9 Activity, unspecified; Y99.9 Unspecified external cause status; Y92.9 Unspecified place or not applicable